=== PATIENT | male | born 1995 | race Caucasian/White ===

== ENCOUNTER 2024-09-09 11:21 | Emergency (ER) | payer OTHER ==
[~2024-09-09] VITALS: Ht 170.2 cm; Wt 84.5 kg
[2024-09-09 11:27] VITALS: O2SAT 98
[2024-09-09] MEDS ORDERED: MUPIROCIN 2% OINT 15GM TOP SCH (12:30)
[2024-09-09] MEDS ORDERED: AMOX125S77 PO (12:34)
[2024-09-09] MEDS ORDERED: ACET-2708 MT (12:36)
[2024-09-09] MEDS ORDERED: MUPI15CR11 TP (12:36)
[2024-09-09] MEDS ORDERED: MUPIROCIN 2% OINT 15GM TOP NR (12:45)
[2024-09-09 12:53] VITALS: BP 99/61; PULSE 67; RESP 19; TEMP 37; O2SAT 100
== END 2024-09-09 12:56 | disposition home or self-care (01) ==
LOC: ER 11:21
DX: S99.921A Unspecified injury of right foot, initial encounter (principal); Z79.899 Other long term (current) drug therapy; W19.XXXA Unspecified fall, initial encounter; Y93.89 Activity, other specified; Y92.89 Other specified places as the place of occurrence of the external cause; Y99.8 Other external cause status
CPT/HCPCS: 73630; 99283